=== PATIENT | male | born 1945 | race Caucasian/White ===

== ENCOUNTER → 2022-09-04 | Outpatient (CLI) | payer MEDICARE ==
--- NOTE | 2022-09-04 13:12 | Diagnostic Imaging Report ---
INDICATION: Pneumonia. TECHNIQUE: PA and lateral views were obtained. FINDINGS: The heart size, mediastinal configuration, and pulmonary vascularity are within normal limits. There is no pleural effusion, pneumothorax, or pneumonia. The osseous structures are unremarkable. IMPRESSION: No acute cardiopulmonary abnormality. Dictated by: Dictated on workstation # [id number]
== END ==
LOC: RAD 09:15
PROVIDERS: ATTEND Family Medicine
DX: J18.9 Pneumonia, unspecified organism (principal)
CPT/HCPCS: 71046

== ENCOUNTER → 2023-04-04 | Outpatient (CLI) | payer MEDICARE ==
--- NOTE | 2023-04-04 23:28 | Diagnostic Imaging Report ---
INDICATION: Right thumb pain nonhealing infection). Severe infection in thumb x 3-4 weeks with continued pain. TECHNIQUE: Single PA hand along with two views of right thumb, 3:24 PM. CORRELATION STUDY: None. FINDINGS: Benign-appearing sclerotic foci of the distal radius. Radiocarpal row maintained. Carpal bones intact. There is rather significantly advanced degenerative change of the 1st carpometacarpal articulation which includes joint space narrowing, osteophyte formation and sclerosis. Slight radial subluxation of the 1st metacarpal. The thumb, itself, otherwise appears to be intact. No acute bony abnormality or joby bony erosive change. Remaining osseous structures of the hand otherwise intact as well. No abnormal soft tissue gas collection. IMPRESSION: Negative for acute bony abnormality in right hand with attention to thumb. 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 Dictated by: Dictated on workstation # [id number]
== END ==
LOC: RAD 15:15
PROVIDERS: ATTEND Family Medicine
DX: M19.041 Primary osteoarthritis, right hand (principal); L08.9 Local infection of the skin and subcutaneous tissue, unspecified
CPT/HCPCS: 73140

== ENCOUNTER 2023-04-10 16:21 | Observation (INO) | payer MEDICARE ==
[~2023-04-10] VITALS: Ht 165 cm; Wt 65.5 kg
[2023-04-10] MEDS ORDERED: ONDANSETRON 4 MG/2 ML (SDV) Z0FRAN ONE (16:52)
[2023-04-10 16:55] LABS: BASOPHILS % (AUTO) 0 % (0-10); EOSINOPHILS # (AUTO) 0.3 10^3/uL (0.0-0.3); EOSINOPHILS % (AUTO) 3 % (0-10); HEMATOCRIT 42 % (40-54); HEMOGLOBIN 14.7 g/dL (13.3-17.7); LYMPHOCYTES # (AUTO) 1.3 10^3/uL (1.0-4.0); LYMPHOCYTES % (AUTO) 15 % (12-44); MEAN CORPUSCULAR HEMOGLOBIN 32 pg (25-34); MEAN CORPUSCULAR HGB CONC 35 g/dL (32-36); MEAN CORPUSCULAR VOLUME 92 fL (80-99); MEAN PLATELET VOLUME 9.6 fL (9.0-12.2); MONOCYTES % (AUTO) 11 % (0-12); NEUTROPHILS % (AUTO) 70 % (42-75); PLATELET COUNT 268 10^3/uL (130-400); WHITE BLOOD COUNT 8.6 10^3/uL (4.3-11.0)
[2023-04-10 16:59] LABS: ALBUMIN 3.7 GM/DL (3.2-4.5); CHLORIDE 102 MMOL/L (98-107); POTASSIUM 3.5 MMOL/L (3.6-5.0); SODIUM 134 MMOL/L (135-145)
[2023-04-10 17:00] LABS: CALCIUM 8.6 MG/DL (8.5-10.1)
[2023-04-10 17:02] LABS: GLUCOSE 157 MG/DL (70-105); TOTAL PROTEIN 5.8 GM/DL (6.4-8.2)
[2023-04-10 17:03] LABS: BILIRUBIN,TOTAL 0.4 MG/DL (0.1-1.0); CARBON DIOXIDE 17 MMOL/L (21-32)
[2023-04-10 17:05] LABS: ALKALINE PHOSPHATASE 86 U/L (40-136); GFR ESTIMATED 63
[2023-04-10 17:06] LABS: BUN/CREATININE RATIO 15
[2023-04-10 17:08] LABS: ALANINE AMINOTRANSFERASE 24 U/L (0-55); MAGNESIUM 2.1 MG/DL (1.6-2.4)
--- NOTE | 2023-04-10 17:16 | Diagnostic Imaging Report ---
PROCEDURE: CT head wo r/o stroke. TECHNIQUE: Multiple contiguous axial images were obtained through the brain without the use of intravenous contrast. Auto Exposure Controls were utilized during the CT exam to meet ALARA standards for radiation dose reduction. INDICATION: 77-year-old male, seizure activity. CORRELATION STUDY: None FINDINGS: Generalized atrophic changes with prominence of ventricles and sulci. Likely more focal area of encephalomalacia of the left frontal lobe posterior medial left parietal lobe as well as a more rounded area, the left circumflex cortex favoring more remote areas of a probable infarct or injury. Definitive regional area of edema is not suggested. No midline shift or mass effect. No intracranial hemorrhage. Scattered areas of increased density throughout the vessel of [place]. Given multiplicity, there is likely no significance. No asymmetric hyperdense sign. Basilar cisterns are maintained. There is mild intracranial vascular calcification. Paranasal sinuses and mastoid air cells clear. IMPRESSION: 1. Negative for acute intracranial abnormality. Dictated by: Dictated on workstation # [id number]
--- NOTE | 2023-04-10 18:13 | ED Neurological Problem ---
General Chief Complaint: General Problems/Pain Stated Complaint: SEIZURE Nursing Triage Note: PT TO ED BY EMS WITH C/O POSSIBLE SEIZURE. SON REPORTSPT WAS TALKING AND SUDDENLY PULLED ARMS TO BODY, ROLLED TO SIDE, AND BEGAN CONVULSING AND FOAMING AT THE MOUTH. EPISODE LASTED APPROX 4.5-5 MIN. PT HAS NO RECOLLECTION OF EVENT AND DOES NOT REMEMBER BEING WITH SON. EMS REPORTS PT WAS DIAPHORETIC AND POSTICTAL UPON THEIR ARRIVAL. PT A&O X 4 UPON ARRIVAL, REPORTS HE FEELS TIRED NOW. Source: patient, family Exam Limitations: clinical condition History of Present Illness Date Seen by Provider: Apr 10, 2023 Time Seen by Provider: 16:22 Initial Comments This 77-year-old gentleman presents to the emergency room via EMS after having witnessed seizure-like activity. The family had been out to eat for lunch and return to the home. He was having a conversation with his son when he suddenly beatriz up in a position and turned to his side. He then began to convulse in a seizure-like fashion. He had white frothing saliva coming from the mouth and was unresponsive. Convulsions stopped after 4.5 to 5 minutes according to his son. Patient was still unresponsive after that time. It was approximately 20 minutes from time of onset to the arrival of EMS. EMS reports he was still very postictal upon their arrival but did respond. By description, it appeared patient had a seizure. He has never had any seizure-like activity before. By history, there appears to be no trigger. He has not been ill in any way recently. He has not had any headaches or head trauma. He has no neoplastic history. He is not febrile. He was not hypoglycemic as his blood sugar on site was 182 and 197 on arrival. Patient was noted to be diaphoretic. He denied any shortness of breath or chest pain. Vital signs were relatively unremarkable for EMS. They did report he appeared pale/ashen despite having normal vital signs. Patient reports feeling very tired but otherwise feeling okay. Patient occasionally drinks alcohol but does not drink alcohol often enough to suspect withdrawal. Patient was hypoxic during early assessment and required NC O2 supplement. Allergies and Home Medications Allergies Coded Allergies: No Known Drug Allergies (Unverified , 04/10/23) Patient Home Medication List Home Medication List Reviewed: Yes Review of Systems Review of Systems Constitutional: see HPI Eyes: No Symptoms Reported Ears, Nose, Mouth, Throat: see HPI Respiratory: see HPI Cardiovascular: no symptoms reported Gastrointestinal: no symptoms reported Genitourinary: no symptoms reported Musculoskeletal: no symptoms reported Skin: no symptoms reported Psychiatric/Neurological: See HPI Endocrine: See HPI Hematologic/Lymphatic: No Symptoms Reported Past Azapcvt-Ylspxh-Uxnkbq Hx Patient Social History Tobacco Use?: No Use of E-Cig and/or Vaping dev: No Substance use?: No Alcohol Use?: Yes Alcohol type: Beer, Wine Alcohol Frequency: Once in a while Pt feels they are or have been: No Immunizations Up To Date Influenza Vaccine Up-to-Date: No; Not Current First/Initial COVID19 Vaccinat: N/A Past Medical History Surgery/Hospitalization HX: HTN, BORDERLINE DIABETES, HERNIA REPAIR Surgeries: Yes Abdominal (Hernia) Respiratory: No Cardiac: Yes Hypertension Neurological: No Genitourinary: No Gastrointestinal: No Musculoskeletal: No Endocrine: Yes (borderline DM) HEENT: No Cancer: No Psychosocial: No Physical Exam Vital Signs Vital Signs - First Documented 04/10/23 16:24 Temp 36.7 Pulse 88 Resp 16 B/P (MAP) 123/63 (83) Pulse Ox 91 O2 Delivery Room Air Capillary Refill : Less Than 3 Seconds Height, Weight, BMI Height: '" Weight: lbs. oz. kg; 22.00 BMI Method: General Appearance: WD/WN, no apparent distress HEENT: PERRL/EOMI, normal ENT inspection, pharynx normal Neck: normal inspection Respiratory: lungs clear, normal breath sounds, no respiratory distress Cardiovascular: regular rate, rhythm, no edema, no murmur Gastrointestinal: normal bowel sounds, non tender, soft Extremities: non-tender, normal inspection, no pedal edema Neurologic/Psychiatric: buggy driver II-XII nml as tested, no motor/sensory deficits, alert, normal mood/affect, other (somewhat confused and disoriented, memory deficit, postictal) Crainal Nerves: normal hearing, normal speech, PERRL Coordination/Gait: normal finger to nose (normal heel to aponte) Motor/Sensory: no motor deficit, no sensory deficit Skin: normal color, warm/dry Progress/Results/Core Measures Results/Orders Lab Results Laboratory Tests Test 04/10/23 11:25 04/10/23 16:25 04/10/23 16:27 04/10/23 18:43 Range/Units White Blood Count 8.6 4.3-11.0 10^3/uL Red Blood Count 4.56 4.30-5.52 10^6/uL Hemoglobin 14.7 13.3-17.7 g/dL Hematocrit 42 40-54 % Mean Corpuscular Volume 92 80-99 fL Mean Corpuscular Hemoglobin 32 25-34 pg Mean Corpuscular Hemoglobin Concent 35 32-36 g/dL Red Cell Distribution Width 12.1 10.0-14.5 % Platelet Count 268 130-400 10^3/uL Mean Platelet Volume 9.6 9.0-12.2 fL Immature Granulocyte % (Auto) 0 % Neutrophils (%) (Auto) 70 42-75 % Lymphocytes (%) (Auto) 15 12-44 % Monocytes (%) (Auto) 11 0-12 % Eosinophils (%) (Auto) 3 0-10 % Basophils (%) (Auto) 0 0-10 % Neutrophils # (Auto) 6.0 1.8-7.8 10^3/uL Lymphocytes # (Auto) 1.3 1.0-4.0 10^3/uL Monocytes # (Auto) 1.0 0.0-1.0 10^3/uL Eosinophils # (Auto) 0.3 0.0-0.3 10^3/uL Basophils # (Auto) 0.0 0.0-0.1 10^3/uL Immature Granulocyte # (Auto) 0.0 0.0-0.1 10^3/uL Sodium Level 134 L 135-145 MMOL/L Potassium Level 3.5 L 3.6-5.0 MMOL/L Chloride Level 102 98-107 MMOL/L Carbon Dioxide Level 17 L 21-32 MMOL/L Anion Gap 15 H 5-14 MMOL/L Blood Urea Nitrogen 18 7-18 MG/DL Creatinine 1.20 0.60-1.30 MG/DL Estimat Glomerular Filtration Rate 63 BUN/Creatinine Ratio 15 Glucose Level 157 H 70-105 MG/DL Calcium Level 8.6 8.5-10.1 MG/DL Corrected Calcium 8.8 8.5-10.1 MG/DL Magnesium Level 2.1 1.6-2.4 MG/DL Total Bilirubin 0.4 0.1-1.0 MG/DL Aspartate Amino Transf (AST/SGOT) 22 5-34 U/L Alanine Aminotransferase (ALT/SGPT) 24 0-55 U/L Alkaline Phosphatase 86 40-136 U/L Total Protein 5.8 L 6.4-8.2 GM/DL Albumin 3.7 3.2-4.5 GM/DL TSH [place] Testing 1.40 0.35-4.94 UIU/ML Serum Alcohol < 10 <10 MG/DL Glucometer 161 H 70-110 MG/DL Urine Color YELLOW Urine Clarity CLEAR Urine pH 6.0 5-9 Urine Specific [place] 1.020 1.016-1.022 Urine Protein TRACE H NEGATIVE Urine Glucose (UA) NEGATIVE NEGATIVE Urine Ketones NEGATIVE NEGATIVE Urine Nitrite NEGATIVE NEGATIVE Urine Bilirubin NEGATIVE NEGATIVE Urine Urobilinogen 0.2 < = 1.0 MG/DL Urine Leukocyte Esterase NEGATIVE NEGATIVE Urine RBC (Auto) NEGATIVE NEGATIVE Urine RBC NONE /HPF Urine WBC NONE /HPF Urine Squamous Epithelial Cells NONE /HPF Urine Crystals PRESENT H /LPF Urine Amorphous Sediment RARE KATHERINE URATES H /LPF Urine Bacteria NEGATIVE /HPF Urine Casts PRESENT /LPF Urine Hyaline Casts 10-25 H /LPF Urine Mucus MODERATE H /LPF Urine Culture Indicated NO My Orders Orders - FARHAT CONTRERAS MD Ed Iv/Invasive Line Start (04/10/23 16:47) Ct Head Wo-R/O Stroke (04/10/23 16:47) Alcohol (04/10/23 16:47) Cbc With Automated Diff (04/10/23 16:47) Comprehensive Metabolic Panel (04/10/23 16:47) Magnesium (04/10/23 16:47) Thyroid Analyzer (04/10/23 16:47) Ua Culture If Indicated (04/10/23 16:47) Ekg Tracing (04/10/23 16:47) Monitor-Rhythm Ecg Trace Only (04/10/23 16:47) Ondansetron Injection (Zofran Injectio (04/10/23 16:52) Levetiracetam Injection (Keppra Injectio (04/10/23 18:18) Code/Resuscitation (04/10/23 18:19) Ed Admission (Communication) (04/10/23 18:20) Medications Given in ED Vital Signs/I&O 04/10/23 16:24 Temp 36.7 Pulse 88 Resp 16 B/P (MAP) 123/63 (83) Pulse Ox 91 O2 Delivery Room Air 04/11/23 00:00 Intake Total 1200 ml Balance 1200 ml Blood Pressure Mean: 83 Progress Progress Note : Time: 18:23 Progress Note Patient was interviewed and examined upon arrival. Family was also interviewed. Report was received from EMS. Throat evaluation was performed including CT of the head which was unremarkable by radiologist interpretation. Labs were reviewed and interpreted by me in their entirety. There were no major abno rmalities appreciated except for carbon dioxide of 17 and mild hyperglycemia. Patient's postictal state gradually improved and he was much more alert upon reevaluation. He did not remember his initial conversations with me. He was beginning to remember events of the day. I discussed options with the patient including discharge home with careful observation and close follow-up versus admission to the hospital for observation and further imaging of the head. After discussing risks and benefits, patient elected to be admitted. I discussed the case with Dr. Williamson, admitting hospitalist. He requested a dose of Keppra 500 mg IV be administered in the ER. I discussed CODE STATUS with the patient, and he elects a DNR status. Order was placed on his behalf. Initial ECG Impression Date: Apr 10, 2023 Initial ECG Impression Time: 17:01 Initial ECG Rate: 82 Initial ECG Rhythm: Normal Sinus Initial ECG Impression: Normal Comment Normal sinus rhythm with no ST elevation or depression. No abnormal intervals or axis deviation. Diagnostic Imaging Diagonstic Imaging: CT Plain Films/CT/US/NM/MRI: head Comments NAME: ANTONIO FENTON [facility] REC#: [id number] PT STATUS: REG ER : 1945 PHYSICIAN: FARHAT CONTRERAS MD ADMIT DATE: 04/10/23/ER Draft Date of Exam:04/10/23 CT HEAD WO-R/O STROKE PROCEDURE: CT head wo r/o stroke. TECHNIQUE: Multiple contiguous axial images were obtained through the brain without the use of intravenous contrast. Auto Exposure Controls were utilized during the CT exam to meet ALARA standards for radiation dose reduction. INDICATION: 77-year-old male, seizure activity. CORRELATION STUDY: None FINDINGS: Generalized atrophic changes with prominence of ventricles and sulci. Likely more focal area of encephalomalacia of the left frontal lobe posterior medial left parietal lobe as well as a more rounded area, the left circumflex cortex favoring more remote areas of a probable infarct or injury. Definitive regional area of edema is not suggested. No midline shift or mass effect. No intracranial hemorrhage. Scattered areas of increased density throughout the vessel of [place] of [place]. Given multiplicity, there is likely no significance. No asymmetric hyperdense sign. Basilar cisterns are maintained. There is mild intracranial vascular calcification. Paranasal sinuses and mastoid air cells clear. IMPRESSION: 1. Negative for acute intracranial abnormality. Dictated on workstation # [id number] Dict: 04/10/231710 Trans: 04/10/231715 CV [id number] Interpreted by: KAYKAY CARO DO Departure Communication (Admissions) Time/Spoke to Admitting Phy: 18:20 Dr. Williamson Impression Primary Impression: New onset seizure Disposition: ADMITTED INPATIENT Condition: Improved Admissions Decision to Admit Reason: Admit from ER (General) Decision to Admit/Date: Apr 10, 2023 Time/Decision to Admit Time: 18:20 Departure-Patient Inst. Referrals: FELECIA HALEY MD (PCP/Family) Primary Care Physician Copy Copies To 1: FELECIA HALEY MD, JOSHUA T MD Apr 10, 2023 18:13
[2023-04-10 18:49] LABS: BILIRUBIN,URINE NEGATIVE (NEGATIVE); CLARITY,URINE CLEAR; COLOR,URINE YELLOW; GLUCOSE, URINE (UA) NEGATIVE (NEGATIVE); KETONES,URINE NEGATIVE (NEGATIVE); LEUKOCYTE ESTERASE ,URINE NEGATIVE (NEGATIVE); NITRITE,URINE NEGATIVE (NEGATIVE); PROTEIN,URINE TRACE (NEGATIVE)
[2023-04-10 19:04] LABS: AMORPHOUS SEDIMENT,UR RARE AMOR URATES /LPF; BACTERIA,URINE NEGATIVE /HPF
[2023-04-10 19:25] VITALS: BP 157/97
[2023-04-10] MEDS ORDERED: MELATONIN 3 MG TABLET PO PRN (19:45)
[2023-04-10] MEDS ORDERED: ONDANSETRON 4 MG (ZOFRAN) ORAL DISSOLVE TAB PO PRN (19:45)
[2023-04-10] MEDS ORDERED: BISACODYL 10 MG SUPP (DULCOLAX) PR PRN (19:45)
[2023-04-10] MEDS ORDERED: ANTACID SUSP 30 ML UDC (MYLANTA) PO PRN (19:45)
[2023-04-10] MEDS ORDERED: ONDANSETRON 4 MG/2 ML (SDV) Z0FRAN IV PRN (19:45)
[2023-04-10] MEDS ORDERED: CALCIUM CARBONATE 500 MG (TUMS) TAB.CHEW PO PRN (19:45)
[2023-04-10] MEDS ORDERED: MILK OF MAGNESIA 400 MG/5 ML 30 ML UDC PO PRN (19:45)
[2023-04-10] MEDS ORDERED: LACTULOSE SYRUP 10GM/15ML (ENULOSE) 30ML UDC PO PRN (19:45)
[2023-04-10] MEDS ORDERED: polyethylene glycoL POWDER 17 GM (MIRALAX) PACK PO PRN (19:45)
[2023-04-10] MEDS ORDERED: rOPINIRole 0.25 MG (REQUIP) TAB ONE (20:17)
[2023-04-10] MEDS: ENOXAPARIN 40 MG/0.4 ML (LOVENOX) SYR SC SCH (20:31)
[2023-04-10] MEDS: rOPINIRole 0.25 MG (REQUIP) TAB PO SCH (20:32)
[2023-04-10] MEDS: ACETAMINOPHEN 325 MG TABLET PO PRN (20:32)
[2023-04-10] MEDS: SENNOSIDES 8.6 MG (SENOKOT) TAB PO SCH (20:32)
[2023-04-10] MEDS: DOCUSATE SODIUM 100 MG (COLACE) CAP PO SCH (20:32)
[2023-04-10 23:31] VITALS: BP 130/72
[2023-04-11 03:11] VITALS: BP 122/68
[2023-04-11] MEDS: SENNOSIDES 8.6 MG (SENOKOT) TAB PO SCH ×2 (08:06→19:52)
[2023-04-11] MEDS: DOCUSATE SODIUM 100 MG (COLACE) CAP PO SCH ×2 (08:06→19:52)
[2023-04-11 08:27] VITALS: BP 135/65
[2023-04-11] MEDS ORDERED: GADOTERATE 0.5 MMOL/ML (CLARISCAN) 15 ML VIAL IV ONE (08:30)
--- NOTE | 2023-04-11 09:09 | Diagnostic Imaging Report ---
PROCEDURE: MR imaging of the brain with and without contrast. TECHNIQUE: Multiplanar, multisequence MR imaging of the brain was performed with and without contrast. INDICATION: Seizure. COMPARISON: CT of the head without contrast 04/10/2023. FINDINGS: No acute infarct. No acute or chronic hemorrhage. The ventricles are normal in size and configuration without hydrocephalus. Moderate scattered FLAIR hyperintensities in the subcortical and periventricular deep white matter, and olya, a nonspecific finding, most commonly seen with chronic small vessel ischemic disease. Enlarged perivascular space noted within the left basal ganglia. Normal appearance of the temporal lobes. No abnormal enhancement. The scalp and calvarium are normal. The pituitary and sella are normal. No Chiari malformation. The visualized upper cervical spine is normal. The visualized orbits and globes are normal. The visualized paranasal sinuses are clear. The mastoid air cells are clear. Normal flow voids within the vertebral, basilar, and internal carotid arteries indicating patency. IMPRESSION: 1. No acute infarct or hemorrhage. 2. No mass or abnormal enhancement. Dictated by: Dictated on workstation # [id number]
[2023-04-11] MEDS: ACETAMINOPHEN 325 MG TABLET PO PRN (09:17)
[2023-04-11 12:17] VITALS: BP 113/65
--- NOTE | 2023-04-11 13:43 | Physical Therapy Evaluation ---
PT Evaluation-General Medical Diagnosis Admission Date Apr 10, 2023 at 19:15 Medical Diagnosis: SEIZURE Onset Date: Apr 10, 2023 Therapy Diagnosis Therapy Diagnosis: weakness Precautions Precautions/Isolations: Seizure, Fall Prevention, Standard Precautions Weight Bear Status Right Lower Extremity: Right Full Weight Bearing Left Lower Extremity: Left Full Weight Bearing Referral Physician: Teri Reason for Referral: Evaluation/Treatment Medical History Pertinent Medical History: HTN Additional Medical History borderline DM, hernia repair Current History Presented to ED with possible seizure. Reviewed History: Yes Social History Home: Single Level Current Living Status: Alone Entry Into Home: Stairs With Railing PT Steps Into Home: 3 Prior Prior Level of Function SCALE: Activities may be completed with or without assistive devices. 3-Fkvxdfomho-vrifmie completes the activity by him/herself with no assistance from a helper. 5-Set-up or Clean-up Assistance-helper sets up or cleans up; patient completes activity. [place] assists only prior to or following the activity. 4-Supervision or Touching Assistance-helper provides verbal cues and/or touching/steadying and/or contact guard assistance as patient completes activity. Assistance may be provided throughout the activity or intermittently. 3-Partial/Moderate Assistance-helper does LESS THAN HALF the effort. [place] lifts, holds or supports trunk or limbs, but provides less than half the effort. 2-Substantial/Maximal Assistance-helper does MORE THAN HALF the effort. [place] lifts or holds trunk or limbs and provides more than half the effort. 5-Trestjlyq-kfcxsi does ALL the effort. Patient does none of the effort to complete the activity. Or, the assistance of 2 or more helpers is required for the patient to complete the activity. If activity was not attempted, code reason: 7-Patient Refused. 9-Not Applicable-not attempted and the patient did not perform the activity before the current illness, exacerbation or injury. 10-Not Attempted due to Environmental Limitations-(lack of equipment, weather restraints, etc.). 88-Not Attempted due to Medical Conditions or Safety Concerns. Bed Mobility: 6 Transfers (B,C,W/C): 6 Gait: 6 Stairs: 6 Indoor Mobility (Ambulation): Independent Stairs: Independent Prior Devices Use: None Pt reports he walks 2 miles/day and frequently splits wood. Works at [employer] PT Evaluation-Current Subjective Pt in bed, agreeable. Reports "slight" LEES and feeling "tired and a little foggy". Pt reports ambulation is near PLOF, "just a little wobbly" Pt/Family Goals home Objective Patient Orientation: Person, Place, Time, Situation ROM/Strength ROM Upper Extremities WFL for mobility ROM Lower Extremities WFL for mobility Strength Upper Extremities WFL for mobility Strength Lower Extremities grossly 4/5 Integumentary/Posture Integumentary See nurses' notes Bowel Incontinence: No Bladder Incontinence: No Posture Slight kyphosis Neuromuscular (Tone, Coordination, Reflexes) Intact Sensory Vision: Wears Glasses Hearing: Functional Transfers Roll Left to Right (QC): 6 Sit to Lying (QC): 6 Lying to Sitting/Side of Bed(Q: 6 Sit to Stand (QC): 5 (SBA) Pt initially reports mild lightheaded upon sitting and standing but resolved. Gait Does the Patient Walk?: Yes Mode of Locomotion: Walk Anticipated Mode of Locomotion: Walk Walk 10 feet (QC): 4 Walk 50 ft with 2 Turns(QC): 4 Walk 150 ft (QC): 4 Distance: 325' Gait Assistive Device: None Comments/Gait Description Slow gait, short, shuffling steps. Mildly unsteady but no joby LOB. Wheelchair Training Does the Pt Use a Wheelchair?: No Type of Wheelchair: N/A Balance Sitting Static: Normal Sitting Dynamic: Good Standing Static: Fair Standing Dynamic: Fair Treatment Eval. Returned to bed with all needs met. Assessment/Needs Pt is a 77 y.o. male who would benefit from short term skilled PT to improve functional strength and (I) and safety with functional mobility to allow safe return home. Rehab Potential: Good PT Short Term Goals Short Term Goals Time Frame: Apr 14, 2023 Sit to stand: 6 Chair/uqj-na-wwfie transfer: 6 PT Assisted Goals Insurance Account Representative Goals PT Assisted Goals Time Frame: Apr 18, 2023 Roll Left & Right (QC): 6 Sit to Lying (QC): 6 Lying-Sitting on Side/Bed(QC): 6 Sit to Stand (QC): 6 Chair/Frv-ry-Mnpdw Xfer(QC): 6 Toilet Transfer (QC): 6 Car Transfer (QC): 6 Does the Patient Walk: Yes Walk 10 feet (QC): 6 Walk 50ft with 2 Turns (QC): 6 Walk 150 ft (QC): 6 Walking 10ft on Uneven Surface: 6 1 Step (curb) (QC): 6 4 Steps (QC): 6 12 Steps (QC): 9 Does the Pt use WC or Scooter?: No Type: N/A Type: N/A PT LTGs established to allow safe return home PT Plan Problem List Problem List: Activity Tolerance, Functional Strength, Safety, Balance, Gait, Transfer Treatment/Plan Treatment Plan: Continue Plan of Care Treatment Plan: Education, Functional Activity Teresa, Functional Strength, Gait, Safety, Therapeutic Exercise, Transfers Treatment Duration: Apr 18, 2023 Frequency: 6 times per week Estimated Hrs Per Day: .25 hour per day Patient and/or Family Agrees t: Yes Safety Risks/Education Teaching Recipient: Patient, Family Teaching Methods: Discussion Response to Teaching: Verbalize Understanding PT POC Time Time In: 1320 Time Out: 1335 DATE: Apr 11, 2023 Total Billed Treatment Time: 15 Total Billed Treatment 1, LUCIUS GRIFFIN DPT Apr 11, 2023 13:43
[2023-04-11] MEDS ORDERED: ASPI-1238 PO (14:25)
[2023-04-11] MEDS ORDERED: POTA-330 PO (14:25)
[2023-04-11] MEDS ORDERED: CARB15DR OU (14:25)
[2023-04-11] MEDS ORDERED: HYDR25TA4 PO (14:25)
[2023-04-11] MEDS ORDERED: VIT1CAPS44 PO (14:25)
[2023-04-11 16:27] VITALS: BP 135/75
[2023-04-11] MEDS: ENOXAPARIN 40 MG/0.4 ML (LOVENOX) SYR SC SCH (19:51)
[2023-04-11] MEDS: rOPINIRole 0.25 MG (REQUIP) TAB PO SCH (19:52)
--- NOTE | 2023-04-11 20:20 | History & Physical-Hospitalist ---
History of Present Illness HPI/Chief Complaint Jaskaran Peres is a 77 year old male who presented after a seizure. He had been in his normal state of health prior. He does not remember what happened. He had been out to eat with his family and returned home. His son witnessed him fall to the floor and convulse for several minutes. He was lethargic and confused for several minutes afterward. He has no history of seizure. He does not drink alcohol regularly. He was taking antibiotics recently for an infection in his thumb. He has not been on antibiotics for the past week. He has not started any other medications. He has used muscle relaxers in the past but no recent use. He has been using Advil PM to help with sleep. His son reports that he has had a poor appetite, but he denies any weight loss. Source: patient Exam Limitations: no limitations Date Seen 04/11/23 Time Seen by a Provider: 10:30 Attending Physician Christos Simms MD PCP Admitting Physician: Holly Beal MD Attending Physician: Holly Beal MD Referring Physician Date of Admission Apr 10, 2023 at 19:15 Home Medications & Allergies Home Medications Reviewed patient Home Medication Reconciliation performed by pharmacy medication reconciliations quality lab technician and/or nursing. Patients Allergies have been reviewed. Allergies Allergies Coded Allergies No Known Drug Allergies (Unverified04/10/23) Past Ympomir-Pvurby-Vrgwal Hx Patient Social History Tobacco Use?: No Smoking Status: Never a Smoker Smokeless Tobacco Frequency: Never a User Use of E-Cig and/or Vaping dev: No Substance use?: No Alcohol Use?: No Alcohol type: Beer, Wine Alcohol Frequency: Once in a while Pt feels they are or have been: No Immunizations Up To Date First/Initial COVID19 Vaccinat: N/A Current Status Advance Directives: Yes Advance Directive Location: Home Communicates: Verbally Primary Language: Ethiopian Preferred Spoken Language: Ethiopian Is interpretation needed?: No Sensory deficits: Vision impairment, Hearing impairment Implanted or Applied Medical D: None Past Medical History Surgeries: Abdominal (Hernia) Hypertension Family Medical History No Pertinent Family Hx Review of Systems Constitutional: no symptoms reported Respiratory: no symptoms reported Cardiovascular: no symptoms reported Gastrointestinal: no symptoms reported Physical Exam Physical Exam Vital Signs Vital Signs - First Documented 04/10/23 16:24 Temp 36.7 Pulse 88 Resp 16 B/P (MAP) 123/63 (83) Pulse Ox 91 O2 Delivery Room Air Capillary Refill : Less Than 3 Seconds Height, Weight, BMI Height: '" Weight: lbs. oz. kg; 24.05 BMI Method: General Appearance: No Apparent Distress, WD/WN HEENT: PERRL/EOMI, Pharynx Normal Neck: Normal Inspection, Supple Respiratory: Lungs Clear, Normal Breath Sounds, No Respiratory Distress Cardiovascular: Regular Rate, Rhythm, No Edema, No Murmur Gastrointestinal: Normal Bowel Sounds, Non Tender, Soft Extremity: Normal Inspection, No Pedal Edema Neurologic/Psychiatric: Alert, Oriented x3, No Motor/Sensory Deficits, Normal Mood/Affect Skin: Normal Color, Warm/Dry Results Results/Procedures Labs Laboratory Tests 04/10/23 16:25 Patient resulted labs reviewed. Imaging: Reviewed Imaging Report Assessment/Plan Admission Diagnosis Seizure Admission Status: Observation Assessment and Plan Seizure No significant lab abnormalities CT unrevealing MRI without acute abnormalities Possibly due to diphenhydramine Discontinue Advil PM Debility PT Diagnosis/Problems Diagnosis/Problems (1) New onset seizure Status: Acute HOLLY BEAL MD Apr 11, 2023 20:20
[2023-04-11 20:37] VITALS: BP 137/65
[2023-04-12] VITALS: BP 123/74
[2023-04-12 04:00] VITALS: BP 145/75
[2023-04-12 07:30] VITALS: BP 144/70
[2023-04-12] MEDS: SENNOSIDES 8.6 MG (SENOKOT) TAB PO SCH (08:26)
[2023-04-12] MEDS: DOCUSATE SODIUM 100 MG (COLACE) CAP PO SCH (08:26)
--- NOTE | 2023-04-12 10:41 | Physical Therapy Daily Note ---
PT Daily Note-Current Subjective Patient reports frustration with his current situation. Agrees to PT. Pain Section J - Health Conditions 1. Rarely or not at all 2. Occasionally 3. Frequently 4. Almost constantly 8. Unable to answer Pain Effect on Sleep: 1 Pain Interference with Therapy: 1 Pain Interference w/Day-to-Day: 1 Mental Status Patient Orientation: Normal For Age Transfers SCALE: Activities may be completed with or without assistive devices. 5-Pdngkbuihe-lrufdnw completes the activity by him/herself with no assistance from a helper. 5-Set-up or Clean-up Assistance-helper sets up or cleans up; patient completes activity. [place] assists only prior to or following the activity. 4-Supervision or Touching Assistance-helper provides verbal cues and/or touching/steadying and/or contact guard assistance as patient completes activity. Assistance may be provided throughout the activity or intermittently. 3-Partial/Moderate Assistance-helper does LESS THAN HALF the effort. [place] lifts, holds or supports trunk or limbs, but provides less than half the effort. 2-Substantial/Maximal Assistance-helper does MORE THAN HALF the effort. [place] lifts or holds trunk or limbs and provides more than half the effort. 0-Upjrhgwsg-zoafjt does ALL the effort. Patient does none of the effort to complete the activity. Or, the assistance of 2 or more helpers is required for the patient to complete the activity. If activity was not attempted, code reason: 7-Patient Refused. 9-Not Applicable-not attempted and the patient did not perform the activity before the current illness, exacerbation or injury. 10-Not Attempted due to Environmental Limitations-(lack of equipment, weather restraints, etc.). 88-Not Attempted due to Medical Conditions or Safety Concerns. Lying to Sitting/Side of Bed(Q: 6 Sit to Stand (QC): 6 Chair/Vjl-ct-Bxjkt Xfer(QC): 6 Weight Bearing Right Lower Extremity: Right Full Weight Bearing Left Lower Extremity: Left Full Weight Bearing Gait Training Distance: 500' Walk 10 feet (QC): 6 Walk 50 ft with 2 Turns(QC): 6 Walk 150 ft (QC): 6 Gait Assistive Device: None safe and functional with no deviation and Good balance Stair Training Stair Training: Handrails/: 1 handrail #of Steps: 12 1 Step (curb) (QC): 6 4 Steps (QC): 6 12 Steps (QC): 6 Stairs: Pattern: Reciprocal Assessment Patient is currently at independent PLOF with all gross motor skills safely and does no require continued skilled PT. RN, physician, SW notified. Patient instructed to be up ad missy in room. PT Short Term Goals Short Term Goals Time Frame: Apr 14, 2023 Sit to stand: 6 Chair/kqj-bs-udavz transfer: 6 PT Operations Business Partner Goals Operations Business Partner Goals PT Senior Care Goals Time Frame: Apr 18, 2023 Roll Left & Right (QC): 6 Sit to Lying (QC): 6 Lying-Sitting on Side/Bed(QC): 6 Sit to Stand (QC): 6 Chair/Uvk-zk-Zynss Xfer(QC): 6 Toilet Transfer (QC): 6 Car Transfer (QC): 6 Does the Patient Walk: Yes Walk 10 feet (QC): 6 Walk 50ft with 2 Turns (QC): 6 Walk 150 ft (QC): 6 Walking 10ft on Uneven Surface: 6 1 Step (curb) (QC): 6 4 Steps (QC): 6 12 Steps (QC): 9 Does the Pt use WC or Scooter?: No Type: N/A Type: N/A PT Plan Treatment/Plan Treatment Plan: Discontinue PT, goals met Treatment Plan: Education, Functional Activity Teresa, Functional Strength, Gait, Safety, Therapeutic Exercise, Transfers Treatment Duration: Apr 18, 2023 Frequency: 6 times per week Estimated Hrs Per Day: .25 hour per day Patient and/or Family Agrees t: Yes Time Time In: 1015 Time Out: 1025 DATE: Apr 12, 2023 Total Billed Treatment Time: 10 Total Billed Treatment 1 visit FA 10 min KIA BALBUENA PT Apr 12, 2023 10:41
[2023-04-12 11:17] VITALS: BP 166/72
[2023-04-12 12:50] VITALS: BP 166/72
== END 2023-04-12 12:50 | disposition home or self-care (01) ==
LOC: EDUNIT# 16:21 → ER 16:22 → UNDOADMOB 19:15 → 4TH 19:15 → UNDODISOB 04-12 12:50
PROVIDERS: ADMIT Internal Medicine; ATTEND Internal Medicine
DX: R56.9 Unspecified convulsions (principal); R53.81 Other malaise; Z28.310 Unvaccinated for COVID-19
CPT/HCPCS: 70450; 70553; 80053; 81000; 82947 ×3; 83036; 83735; 84443; 85025; 93005; 93041; 96372 ×2; 97161; 97530; 99284; G0378; G0480; 36415; 80320